=== PATIENT | male | born 1980 | race Caucasian/White ===

== ENCOUNTER 2022-08-29 20:36 | Emergency (ER) | payer OTHER, SELFPAY ==
--- NOTE | ~2022-08-29 | XR_ITS ---
EXAMINATION: XR FINGER, RIGHT CLINICAL INFORMATION: Pain, crush COMPARISON: None TECHNIQUE: Three views of the right index finger. FINDINGS: Osseous alignment is anatomic. No acute fracture is seen. No significant focal soft tissue abnormality identified. XR/XR finger RT min 2V IMPRESSION: No acute findings identified.
[2022-08-29 20:41] VITALS: BP 132/81; PULSE 80; RESP 16; TEMP 36.9; O2SAT 98; BMI 26.6
[2022-08-30] MEDS: Lidocaine HCl 2 % MPF 5 ML VIAL SUBCUT (00:31)
--- NOTE | 2022-08-30 00:57 | ED.WOUNDLAC ---
HPI - Wound/Laceration General Chief Complaint: Wound/Laceration Stated Complaint: Finger LAC Time Seen by Provider: 08/29/22 23:33 Source: patient and certified professional coder Mode of arrival: ambulatory History of Present Illness HPI narrative: 41-year-old male with up-to-date tetanus shot comes in with a laceration of the right index finger with full range of motion after the windshield Wiper blade came back and struck his finger. Related Data Allergies Allergy/AdvReac Type Severity Reaction Status Date / Time No Known Allergies Allergy Unverified 06/16/20 19:51 Review of Systems Review of Systems: Pertinent positives and negatives as stated in HPI 10 point review of systems is otherwise negative. PMFSH Past Medical History Source: nursing notes reviewed Social History Social History Advance Directives: No Physical Exam Vital Signs: Vital Signs: Last Vital Signs Temp 98.4 F 08/29/22 20:41 Pulse 80 08/29/22 20:41 Resp 16 08/29/22 20:41 BP 132/81 08/29/22 20:41 Pulse Ox 98 08/29/22 20:41 O2 Del Method 08/29/22 20:41 BMI result Body Mass Index 26.6 VITAL SIGNS: Reviewed. GENERAL: Well developed, well nourished, in no acute distress. HEAD: Normocephalic/atraumatic EYES: PERRLA, EOMI LUNGS: Normal breath sounds. No adventitious sounds or accessory muscle use. SpO2<98> CARDIOVASCULAR: Regular rate and rhythm without noted murmurs ABDOMEN: Soft, non-tender, non-distended with bowel sounds. MUSCULOSKELETAL: No tenderness, deformities, or effusions noted on gross inspection. EXTREMITIES: No cyanosis, clubbing or edema; RIGHT INDEX FINGER: There is a 2 cm laceration to the palmar aspect of the DIP area of the finger that is hemostatic, full range of flexion and extension noted. SKIN: Inspection of the skin reveals no rashes NEUROLOGIC: Alert and oriented x 4. Course Course Course Narrative: 41-year-old male with history and clinical presentation consistent with up-to-date tetanus shot, laceration was imaged without evidence of acute fracture or dislocation, irrigated copiously and 5 interrupted sutures were placed with 4-0. Patient is otherwise discharged home with instructions to follow-up in 7 days for suture removal. Medications Administered Discontinued Medications Generic Name Dose Route Start Last Admin Trade Name Freq PRN Reason Stop Dose Admin Lidocaine HCl 5 ml 08/30/22 00:00 08/30/22 00:31 Lidocaine Hcl 2 % Mpf 5 Ml Vial SUBCUT 08/30/22 00:01 5 ml ONCE ONE Administration Procedures Laceration Laceration 1: Site: hand Side (If applicable): right Size (cm): 2 Description: linear Depth: simple, single layer Local Anesthetic: lidocaine 1% Amount of anesthesia used (mL): 5 Pre-repair: wound explored, irrigated extensively and deep structures intact Skin layer closed with: nylon Size (cm): 4-0 Number of sutures: 5 Technique: simple, interrupted Discharge Plan Discharge Clinical Impression: Laceration Patient Disposition: Home, Self-Care Instructions: Finger Laceration (ED), Care For Your Stitches (ED) Additional Instructions: 1. Recomiende el retiro de la sutura (5) en 7 d?as. Springs se puede hacer aqu? en esta bennie de emergencias o en cualquier centro de atenci?n urgente. 2. Recomendar Tylenol/ibuprofeno de venta leno seg?n sea necesario para controlar el dolor. 3. Puede lavarse con agua y jab?n despu?s de 24 horas, secar suavemente y aplicar jm pomada antibi?armando con un vendaje encima. Regrese a la bennie de emergencias si los s?ntomas empeoran. Print Language: Sami
== END 2022-08-30 01:15 | disposition home or self-care (01) ==
PROVIDERS: Emergency Provider Student in an Organized Health Care Education/Training Program
DX: S61.210A Laceration without foreign body of right index finger without damage to nail, initial encounter (principal); W22.8XXA Striking against or struck by other objects, initial encounter; Y93.89 Activity, other specified; Y92.810 Car as the place of occurrence of the external cause; Y99.9 Unspecified external cause status
CPT/HCPCS: 12001; 73140; 99282; 99284